=== PATIENT | female | born 2005 | race Caucasian/White ===

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

== ENCOUNTER 2025-03-20 23:38 | Emergency (ER) | payer MEDICAID, SELFPAY ==
--- NOTE | ~2025-03-20 | US_ITS ---
CLINICAL HISTORY: fall 1 week, calf pain and swelling Venous duplex ultrasound left lower extremity Comparison: None Findings: The visualized deep veins are fully compressible with normal Doppler color flow and spectral tracings. No popliteal cyst. IMPRESSION: Negative for left lower extremity deep vein thrombosis. This document has been electronically signed by: Hari Juan MD on 03/21/2025 03:05:49
[2025-03-20 23:46] VITALS: BP 128/72; PULSE 98; O2SAT 99
[2025-03-20 23:53] VITALS: BP 116/55; PULSE 85; RESP 16; TEMP 521.6; TEMP 971; O2SAT 99; BMI 30.9
[2025-03-21 00:04] VITALS: BP 116/55; PULSE 85; RESP 16; TEMP 36.2; O2SAT 99
--- NOTE | 2025-03-21 00:51 | ED.LOWEXIN ---
HPI - Extremity Injury (Lower) General Chief Complaint: Extremity Injury, Lower Stated Complaint: LEG PAIN Time Seen by Provider: 03/21/25 00:44 Source: patient Mode of arrival: ambulatory Limitations: no limitations History of Present Illness ED Provider: Dr. Dyana Hutchinson HPI Narrative: Patient comes to the emergency room complaining of left lower extremity pain and swelling. According to the patient, about a week and a half ago, patient was playing with her kids in the [employer] park, patient states that she injured her left leg. Patient states that since then, she has had increasing left calf pain and swelling. Patient states that today, patient's slipped in the shower, states that she believes she re-injured her left lower extremity. Patient denies knee pain or ankle pain. Patient denies any other injuries. Related Data Home Medications ?Medication ?Instructions ?Recorded ?Confirmed acetaminophen 325 mg capsule 325 mg PO QID PRN Pain 12/04/21 09/15/22 (Tylenol) Previous Rx's ?Medication ?Instructions ?Recorded aspirin 81 mg tablet,delayed 162 mg (2 x 81 mg) PO DAILY #300 09/15/22 release (Adult Aspirin Regimen) tabs vitamin with calcium 1 tab PO DAILY #90 tabs 09/15/22 no.72-iron 27 mg-folic acid 1 mg tablet ( Vitamins Plus Low Iron) acetaminophen 500 mg tablet 500 mg PO Q6H PRN fever or pain 03/21/25 #20 tabs cyclobenzaprine 5 mg tablet 5 mg PO BID PRN muscle spasm #10 03/21/25 tabs Allergies Allergy/AdvReac Type Severity Reaction Status Date / Time No Known Allergies Allergy Verified 03/21/25 00:03 [No Known Allergies*] Review of Systems Review of Systems: Constitutional : No Weight loss, No Fever, No Chills, No Night Sweats, No Fatigue, No Malaise ENT/Mouth : No Hearing loss, No Ear Pain, No Nasal Congestion, No Sinus Pain, No Hoarseness, No sore throat, No Rhinorrhea, No Swallowing Difficulty Eyes: No Eye Pain, No Swelling, No Redness, No Foreign Body, No Discharge, No Vision Changes Cardiovascular : No Chest Pain, No SOB, No Dyspnea on Exertion, No Orthopnea, No Edema, No Palpitations Respiratory : No Cough, No Sputum, No Wheezing, No Smoke Exposure, No Dyspnea Gastrointestinal : No Nausea, No Vomiting, No Diarrhea, No Constipation, No abdominal Pain, No Hematochezia, No Melena Genitourinary : no irregular bleeding, No Dysuria, No Urinary Frequency, No Hematuria, No Urinary Incontinence, No Urgency, No Flank Pain, No Urinary Flow Changes, No Hesitancy Musculoskeletal : Complaining of left calf pain, No Myalgias, No Joint Swelling Skin : No Skin Lesions, No rash Neuro : No Weakness, No Numbness, No Paresthesias, No Loss of Consciousness, No Dizziness, No Headache Psych : No Anxiety/Panic, No Depression, No SI/HI/AH/VH, No Social Issues, Heme/Lymph: No Bruising, No Bleeding,No Lymphadenopathy Endocrine : No Polyuria, No Polydipsia, No Temperature Intolerance PMFSH Past Medical History Medical History Anemia Asthma Family History Family History Father No problems noted. Social History Social History (System 11/09/24 @ 14:21 by Dione Sarmiento) Household Members: Family Alcohol intake: never Patient Tobacco Use Status: Never used Tobacco Smoked in Last 30 Days: No Use of substances other than those prescribed or required for medical reasons: No Trauma History: No Advance Directives: No Do you have a plan to hurt others: No Plan Patient : No Gender identity: Female Physical Exam Vital Signs: Vital Signs: Last Vital Signs Temp 98.1 F 03/21/25 02:58 Pulse 81 03/21/25 02:58 Resp 16 03/21/25 02:58 BP 135/76 03/21/25 02:58 Pulse Ox 100 03/21/25 02:58 O2 Del Method Room Air 03/21/25 02:58 BMI result Body Mass Index 30.9 Const: Other: Appearance: Alert. Oriented X3. No acute distress. Eyes: Pupils equal, round and reactive to light. ENT: Pharynx normal. Neck: Normal inspection. Neck supple. No lymph nodes noted. No crepitus CVS: Normal heart rate and rhythm. Pulses normal. Normal S1 and S2 Respiratory: No respiratory distress. Breath sounds normal. No Wheezing. No rales Abdomen: Soft and nontender. No rigidity. No distention. Skin: Skin warm and dry. Normal skin color. Normal skin turgor. Extremities: No significant swelling. However, patient has tenderness to palpation in the left calf, no ecchymosis Neuro: Oriented X 3. No motor deficit. No sensory deficit. Moving all extremities. No slurred speech. CN 2 through 12 grossly intact Psych: calm, cooperative, normal affect Course Course Course Narrative: Patient reports an injury in the left lower extremity 1 week ago with worsening calf pain and a re-injury today. No pain to the knee or ankle. Only the calf. There is no significant swelling, however patient does have pain to palpation. Likely musculoskeletal injury, however we will order an ultrasound to rule out DVT Patient's vitals stable, no oxygen desaturation, no tachycardia. Medical Decision Making Medical Decision Making MDM Narrative: Patient's ultrasound is negative for DVT, patient likely has musculoskeletal tear versus contusion Patient is ambulatory Differential Diagnosis Differential Diagnoses: The differential diagnosis associated with the presentation includes (Given patient's history and presentation, observation was considered) Independent Interpretation I performed an independent interpretation of an: Ultrasound Radiology Impression Discussion of test interpretation with radiology: I have reviewed the radiologist's reading. Radiologist Impression: The visualized deep veins are fully compressible with normal Doppler color flow and spectral tracings. No popliteal cyst. IMPRESSION: Negative for left lower extremity deep vein thrombosis. Critical Care Time Critical Care Time Critical Care Time: Yes Total Critical Care Time: 35 Attestation: I have personally provided critical care time. Time includes review of lab data, radiology results, discussion with consultants, and monitoring for potential decompensation. Intervention performed as documented. Discharge Plan Discharge Clinical Impression: Musculoskeletal pain Patient Disposition: Home, Self-Care Instructions: Musculoskeletal Pain (ED) Additional Instructions: Please follow-up with your primary care physician tomorrow. If you have any worsening or new symptoms, please return to the emergency room or call 911 Prescriptions: New cyclobenzaprine 5 mg tablet 5 mg PO BID PRN (Reason: muscle spasm) Qty: 10 0RF acetaminophen 500 mg tablet 500 mg PO Q6H PRN (Reason: fever or pain) Qty: 20 0RF No Action acetaminophen [Tylenol] 325 mg capsule 325 mg PO QID PRN (Reason: Pain) Vitamin Plus Low Iron 27 mg iron- 1 mg tablet 1 tab PO DAILY Qty: 90 5RF aspirin [Adult Aspirin Regimen] 81 mg tablet,delayed release (DR/EC) 162 mg PO DAILY Qty: 300 2RF Stand Alone Forms: Work/School Release Print Language: Tamazight
[2025-03-21 02:58] VITALS: BP 135/76; PULSE 81; RESP 16; TEMP 36.7; O2SAT 100
[2025-03-21 03:37] VITALS: BP 135/76; PULSE 81; RESP 16; TEMP 36.7; O2SAT 100
== END 2025-03-21 03:37 | disposition home or self-care (01) ==
PROVIDERS: Emergency Provider Emergency Medicine
DX: M79.18 Myalgia, other site (principal); M79.605 Pain in left leg
CPT/HCPCS: 93971; 99284

== ENCOUNTER → 2025-03-21 00:50 | Outpatient (BNV) | payer MEDICAID, SELFPAY | PROVIDERS: Emergency Provider Emergency Medicine; Visit Provider Radiology Diagnostic Radiology | DX: R22.42 Localized swelling, mass and lump, left lower limb (principal) | CPT/HCPCS: 93971 ==